=== PATIENT | male | born 1960 | race Asian ===

== ENCOUNTER 2019-01-14 07:21 | Outpatient (CLI) | payer BC ==
--- NOTE | 2019-01-14 08:59 | ULT ---
RIGHT UPPER QUADRANT ULTRASOUND: Date: 01/14/19 PROVIDED CLINICAL HISTORY: Elevated LFTs. FINDINGS: The visualized portions of the IVC and pancreas appear normal. Liver demonstrates increased echogenic ity compatible with fatty infiltration. No mass or intrahepatic biliary ductal dilatation evident. Co mmon duct is not dilated. Gallbladder demonstrates no evidence of stones, wall thickening, or pericho lecystic fluid. Right kidney demonstrates no hydronephrosis or mass. IMPRESSION: Findings suggesting fatty infiltration of the liver. POS: OFF
== END 2019-01-14 07:22 | disposition home or self-care (01) ==
LOC: BICULT 07:21
PROVIDERS: ATTEND Family Medicine
DX: R17 Unspecified jaundice (principal)
CPT/HCPCS: 76705